=== PATIENT | male | born 1960 | race American Indian/Alaskan Native ===

== ENCOUNTER 2020-01-11 06:10 | Emergency (ER) | payer OTHER ==
--- OUTSIDE RECORDS SUMMARY | 2020-01-11 06:14 | XMS REPORT ---
:1960 Author Organization [facility] t Address [address] [place] [address] Care Team Providers Name Role Phone DR ISAURO Unavailable Unavailable Problems This patient has no known problems. Allergies, Adverse Reactions, Alerts This patient has no known allergies or adverse reactions. Medications This patient has no known medications. Encounters Start End Encounter Admission Attending Care Care Encounter Date/Time Date/Time Type Type Clinicians Facility Department ID 2019-05-02 2019-05-03 Outpatient E RUDI BOX TELE [id number] 125 04:14:00 14:41:00 KELL Results Test Description Test Time Test Comments Text Results Atomic Results Result Comments BLOOD CULTURE 2019-05-07 07:58:00 Test Item Value Reference Range Comments Culture Observations (test code = COB1) NO GROWTH AFTER 5 DAYS BLOOD [id number] 07:58:00 Test Item Value Reference Range Comments Culture Observations (test code = NO GROWTH AFTER 5 DAYS COB1) GLUCOMETER GLUCOSE- LAB USE [id number] 13:13:00 Test Item Value Reference Range Comments GLUCOMETER (test code = GMG) 251 mg/dL 70-100 GLUCOMETER GLUCOSE- LAB USE [id number] 11:48:00 Test Item Value Reference Range Comments GLUCOMETER (test code = GMG) 183 mg/dL 70-100 GREGG AMANUELD METERMeter ID: [id number] or: [id number] ANA HERNANDEZ CBC (INCLUDES AUTOMATED DIFFERENTIAL)2019-05-03 07:40:00 Test Item Value Reference Range Comments WBC (test code = WBC) 5.3 10\S\3/uL 4.5-11.0 RBC (test code = RBC) 4.07 10\S\6/uL 4.20-5.60 HGB (test code = HBG) 11.1 g/dL 14.0-18.0 HCT (test code = HCT) 34.6 % 35.0-46.0 MCV (test code = MCV) 85.0 fL 80.0-94.0 MCH (test code = MCH) 27.3 pg 27.0-31.0 MCHC (test code = MCHC) 32.1 g/dL 32.0-36.0 RDW (test code = RDW) 15.6 % 11.5-14.5 PLT (test code = PLT) 214 10\S\3/uL 130-400 MPV (test code = MPV) 9.0 fL 9.4-12.4 NEUTROP # (test code = NE#) 3.9 10\S\3/uL 2.0-8.0 LYMPH # (test code = LY#) 0.7 10\S\3/uL 1.2-4.0 MONOCYTE # (test code = MO#) 0.5 10\S\3/uL 0.0-1.1 EOSINOPH # (test code = EO#) 0.2 10\S\3/uL 0.0-0.7 BASOPHIL # (test code = BA#) 0.0 10\S\3/uL 0.0-0.3 IG # (test code = IG#) 0.01 10\S\3/uL 0.00-0.06 NRBC # (test code = NRBC#) 0.00 10\S\3/uL 0.00-0.01 NEUTROPH % (test code = NE%) 73.8 % 35.0-73.0 LYMPH % (test code = LY%) 12.9 % 20.0-55.0 MONO % (test code = MO%) 9.3 % 2.5-10.0 EOSINOPH % (test code = EO%) 3.2 % 0.0-5.0 BASOPHIL % (test code = BA%) 0.6 % 0.0-2.0 IG % (test code = IG%) 0.2 % 0.0-0.8 NRBC% (test code = NRBC%) 0.0 % 0.0-0.2 MANDIFF (test code = MDIFF) NO NO RBC MORPH (test code = RBCMOR) NORMAL XR CHEST 1 VIEW [id number] 06:26:20Portable AP chest, 1 viewLocation Code: [id number] HISTORY: [id number]: SyncopeCOMPARISON: 05/02/19COMMENT: The lungs are clear and well inflated. The costophrenic angles are sharp. Thecardiomediastinalsilhouette is enlarged. The bones are intact.IMPRESSION: Mild cardiomegaly without change.GLUCOMETER GLUCOSE- LAB USE [id number] 06:02:00 Test Item Value Reference Range Comments GLUCOMETER (test code = GMG) 118 mg/dL 70-100 Met er ID: [id number]: [id number] AN GLUCOMETER GLUCOSE- LAB USE [id number] 19:57:00 Test Item Value Reference Range Comments GLUCOMETER (test code = GMG) 225 mg/dL 70-100 Met er ID: [id number]: [id number] AN U/S CAROTID COLOR DOPPLER [id number] 19:26:37DICTATION LOCATION: [id number]: Male, 58 years of age. AMS: SyncopeEXAM: BILATERAL CAROTID AND VERTEBRAL ARTERIAL DOPPLERCOMPARISON: Correlation made with CT brain without contrast performed earliertoday.TECHNIQUE: Real-time grayscale 2-D imaging, Doppler spectral analysis, andDoppler color flow imaging were performed of the right and left carotid andvertebral arterial systems.FINDINGS: Study technically limited by poor patient cooperation. No significantvisible plaquing. Doppler waveform morphologyand velocities within normallimits bilaterally. RIGHT CAROTID SYSTEM:CCA peak systolic velocity 86 cm/secICA peak systolic velocity 86 cm/secICA to CCA ratio 1.0ECA peak systolic velocity 52 cm/secLEFTCAROTID SYSTEM:CCA peak systolic velocity 87 cm/secICA peak systolic velocity 105 cm/secICA to CCA ratio 1.2ECA peak systolic velocity 51 cm/secNonresistive antegrade flow seen in both vertebrals. IMPRESSION: No hemodynamically significant (less than 50%) carotid stenosis.(NOTE: Validated velocity me asurements with angiographic measurements, velocitycriteria are extrapolated from diameter data as defined by the Society ofRadiologists in Ultrasound Consensus Conference, RADIOLOGY 2003; 220; 340-346.)U/S KIDNEY (RENAL)2019-05-02 19:24:25DICTATION LOCATION: [id number]: Male, 58 years of age. [id number]: Acute renal failure syndromeEXAM: ULTRASOUND OF THE KIDNEYS AND BLADDERCOMPARISON: None relevant.TECHNIQUE: Transabdominal images of thekidneys and urinary bladder with colorDoppler interrogation were performed with the sector transducer .FINDINGS: RIGHT KIDNEY: 12.0 x 5.0 x 5.2 cmNo hydronephrosis, calculus, or cortical mass.Cortex normal in thickness and echogenicity.LEFT KIDNEY: 11.6 x 6.4 x 6.7 cmNo hydronephrosis, calculus, or cortical mass.Cortex normal in thickness and echogenicity.URINARY BLADDER: Contracted with Cardenas catheter in the lumen.IMPRESSION: The kidneys are sonographically normal.GLUCOMETER GLUCOSE- LAB USE [id number] 16:13:00 Test Item Value Reference Range Comments GLUCOMETER (test code = GMG) 106 mg/dL 70-[address] [facility] ANED METERMeter ID: [id number] or: [id number] ANA HERNANDEZ [id number] 12:12:00 Test Item Value Reference Range Comments Hb A1C % (test code = HBA) 7.0 % 4.2-6.3 [id number] 12:08:00 Test Item Value Reference Range Comments CPK (test code = 32A) 241 IU/L 39-308 CLOSTRIDIUM DIFFICILE [id number] 11:08:00 Test Item Value Reference Range Comments Direct Exam (test code = NO CLOSTRIDIUM DIFFICILE TOXIN DE1) A/B DETECTED GLUCOMETER GLUCOSE- LAB USE [id number] 10:48:00 Test Item Value Reference Range Comments GLUCOMETER (test code = GMG) 251 mg/dL 70-100 GLUCOMETER GLUCOSE- LAB USE [id number] 04:58:00 Test Item Value Reference Range Comments GLUCOMETER (test code = GMG) 193 mg/dL 70-100 Met er ID: [id number]: [id number] DANY[address]LL BUSTILLOS COMPREHENSIVE METABOLIC [id number] 02:32:00 Test Item Value Reference Range Comments GLUCOSE (test code = 06D) 242 mg/dL 75-100 SODIUM (test code = 01A) 143 mmol/L 136-145 POTASSIUM (test code = 01B) 3.8 mmol/L 3.6-5.1 CHLORIDE (test code = 04A) 106 mmol/L 98-107 CO2 (test code = 02A) 24 mmol/L 22-32 ANION GAP (test code = ANG) 16.8 mmol/L BUN (test code = 05D) 31 mg/dL 7-18 CREATININE (test code = 03E) 5.1 mg/dL 0.7-1.3 BUN/CREA (test code = BCR) 6 12-20 CALCIUM (test code = 09D) 8.4 mg/dL 8.3-9.5 BILI TOTAL (test code = 11A) 0.4 mg/dL 0.2-1.0 PROTEIN (test code = 07D) 6.9 g/dL 6.4-8.2 ALBUMIN (test code = 08D) 3.7 g/dL 3.5-4.8 GLOBULIN (test code = GLB) 3.2 g/dL 1.5-3.8 ALB/GLOB (test code = AGRR) 1.2 1.0-2.6 ALK PHOS (test code = 35A) 97 IU/L 42-121 AST (test code = 30A) 15 IU/L <=42 ALT (test code = 31A) 20 IU/L <=78 THYROID PANEL/SCREEN (TSH)2019-05-02 02:32:00 Test Item Value Reference Range Comments TSH (test code = A57) 1.690 uIU/mL 0.358-3.740 BRAIN NATRIURETIC [id number] 02:31:00 Test Item Value Reference Range Comments proBNP (test code = PBNP) 133 pg/mL 0-125 LACTIC [id number] 02:25:00 Test Item Value Reference Range Comments LACTIC ACD (test code = LA) 1.8 mmol/L 0.4-2.0 DRUGS OF [id number] 02:24:00 Test Item Value Reference Range Comments DRUG SCRN (test code = HDOA) URINE DRUG SCREEN This is an unconfirmed screening result and should not be used for non-medical purposes CANNABINOD (test code = 88C) Negative NEGATIVE AMPHETAMINE (test code = POSITIVE NEGATIVE 84A) BENZODIAZP (test code = 86A) Negative NEGATIVE BARBITURAT (test code = 85A) Negative NEGATIVE OPIATES (test code = 92B) Negative NEGATIVE COCAINE (test code = 87A) Negative NEGATIVE PHENCYCLID (test code = 66A) Negative NEGATIVE METHADONE (test code = 64A) Negative NEGATIVE DOAH (test code = DOAH.) URINE DRUG SCREEN Cut-off values are as follows: Cannabinoids 50 ng/mL Cocaine 300 ng/mL Amphetamines 1000 ng/mL Phencyclidine 25 ng/mL Benzodiazepines 200 ng.mL Methadone 300 ng/mL Barbiturates 200 ng/mL Opiates 2000 ng/mL CT HEAD W/O [id number] 02:23:44Exam: CT head without contrast.Location: H 12History: [id number]: Altered mental statusTechnique: Unenhanced spiral slices were taken from the base of the skull,through the vertex. One or more of the fol lowing radiation dose reductiontechniques was used: automated exposure control, adjustment of mA and/or KVaccording to patient size, and/or utilization of iterative reconstructiontechnique.Findings:No acute intracranial abnormality is identified. The brain parenchyma and theCSF spaces are unremarkable. No mass, midline shift, hemorrhage, hydrocephalusor edema is seen. The visualized paranasal sinusesare clear. The mastoid aircells are well pneumatized. The bony calvarium is intact.Impression:No acute intracranial abnormality.CARDIAC PROFILE 2019-05-02 02:23:00 Test Item Value Reference Range Comments TROPONIN I (test code = A84) <0.015 ng/mL 0.000-0.045 XR CHEST 1 VIEW [id number] 02:23:00Exam: Chest portable erectLocation: H 12History: [id number]: Altered mental statusComparison: NoneFindings:The lungs are clear. No infiltrate or effusion is seen. The pulmonaryvasculature is normal. Theheart size is normal. The mediastinal silhouette isunremarkable. The bony thorax is intact.Impression:No acute disease.ALCOHOL BLOOD (ETOH) 2019-05-02 02:21:00 Test Item Value Reference Range Comments ETOH (test code = HALC) ETHANOL The result is to be used only for medical purposes ALCOHOL (test code = 56A) <10 mg/dL <=10 [id number] 02:19:00 Test Item Value Reference Range Comments MAGNESIUM (test code = 48A) 1.8 mg/dL 1.8-2.4 AMMONIA [id number] 02:17:00 Test Item Value Reference Range Comments AMMONIA (test code = 54A) 16 umol/L 11-32 AMYLASE AND [id number] 02:16:00 Test Item Value Reference Range Comments AMYLASE (test code = 10A) 40 U/L 28-100 LIPASE (test code = 60A) 150 IU/L 73-393 URINALYSIS WITH [id number] 02:14:00 Test Item Value Reference Range Comments COLOR (test code = COLU) DK YELLOW YELLOW CLARITY (test code = CLA) CLOUDY CLEAR GLUCOSE UR (test code = UA GLUCOSE) NEGATIVE NEGATIVE BILI UR (test code = BILE) 1+ NEGATIVE KETONES UR (test code = MECHELLE) TRACE NEGATIVE SP GRAVITY (test code = SPGR) 1.027 1.005-1.030 PH UR (test code = PH) 5.0 4.5-8.0 PROTEIN UR (test code = PU) 2+ NEGATIVE UROBIL UR (test code = UROQ) 0.2 EU/dL 0.2-1.0 NITRITE UR (test code = NITRITE) NEGATIVE NEGATIVE BLOOD UR (test code = UA BLOOD) NEGATIVE NEGATIVE LEUK ES UR (test code = LEUK) NEGATIVE NEGATIVE WBC UR (test code = UWBC) 1 /HPF 0-3 RBC UR (test code = URBC) 1 /HPF 0-2 EPITH UR (test code = UEPC) FEW /LPF NONE BACTERIA UR (test code = UBACT) FEW /HPF NONE CAST UR (test code = CAST) HYALINE FEW /LPF NONE CRYSTAL UR (test code = CRYU) / LPF NONE MUCUS UR (test code = MUC) / HPF NONE AMORPH UR (test code = DEANNA) / HPF NONE TRICH UR (test code = UTRICH) /HPF NONE YEAST UR (test code = UY) /HPF NONE SPERM UR (test code = USPERM) /HPF NONE PRO TIME AND [id number] 02:14:00 Test Item Value Reference Range Comments PT (test code = TT) 11.7 s 9.8-13.6 INR (test code = INR) 1.0 INRH (test code = INRH) SUGGESTED THERAPEUTIC RANGE FOR INR: 2.5 - 3.5 For Patients with Prosthetic Valves or Patients with recurrent Thromboembolic Events 2.0 - 3.0 For Most Other Applications PTT (test code = PTT) 23.7 s 20.2-38.0 PTTH (test code = PTTH) To monitor the effectiveness of heparin, we offer the Anti-Xa (Heparin Assay). It can be used for either unfractionated or LMW Heparin. Order Code is ANTI-XA CBC (INCLUDES AUTOMATED DIFFERENTIAL)2019-05-02 02:07:00 Test Item Value Reference Range Comments WBC (test code = WBC) 7.0 10\S\3/uL 4.5-11.0 RBC (test code = RBC) 4.21 10\S\6/uL 4.20-5.60 HGB (test code = HBG) 11.4 g/dL 14.0-18.0 HCT (test code = HCT) 36.1 % 35.0-46.0 MCV (test code = MCV) 85.7 fL 80.0-94.0 MCH (test code = MCH) 27.1 pg 27.0-31.0 MCHC (test code = MCHC) 31.6 g/dL 32.0-36.0 RDW (test code = RDW) 16.0 % 11.5-14.5 PLT (test code = PLT) 259 10\S\3/uL 130-400 MPV (test code = MPV) 8.9 fL 9.4-12.4 NEUTROP # (test code = NE#) 5.2 10\S\3/uL 2.0-8.0 LYMPH # (test code = LY#) 1.0 10\S\3/uL 1.2-4.0 MONOCYTE # (test code = MO#) 0.7 10\S\3/uL 0.0-1.1 EOSINOPH # (test code = EO#) 0.1 10\S\3/uL 0.0-0.7 BASOPHIL # (test code = BA#) 0.0 10\S\3/uL 0.0-0.3 IG # (test code = IG#) 0.02 10\S\3/uL 0.00-0.06 NRBC # (test code = NRBC#) 0.00 10\S\3/uL 0.00-0.01 NEUTROPH % (test code = NE%) 74.7 % 35.0-73.0 LYMPH % (test code = LY%) 14.2 % 20.0-55.0 MONO % (test code = MO%) 9.3 % 2.5-10.0 EOSINOPH % (test code = EO%) 1.1 % 0.0-5.0 BASOPHIL % (test code = BA%) 0.4 % 0.0-2.0 IG % (test code = IG%) 0.3 % 0.0-0.8 NRBC% (test code = NRBC%) 0.0 % 0.0-0.2 MANDIFF (test code = MDIFF) NO NO RBC MORPH (test code = RBCMOR) NORMAL Arterial Blood [id number] 02:02:00 Test Item Value Reference Range Comments pH (test code = PHRT) 7.344 7.350-7.450 pCO2 (test code = PCO2RT) 32.1 mmHg 35.0-45.0 pO2 (test code = PO2RT) 130.0 mmHg 80.0-110.0 HCO3? (test code = HCO3) 17.0 mmol/L 22.0-26.0 AMA (test code = AMA) -7.3 mmol/L -3.0-3.0 tHb (test code = THBRT) 10.5 g/dL 14.0-18.0 sO2 (test code = SO2RT) 98.2 % 92.0-100.0 FO2Hb (test code = SZ3JYKU) 95.0 % 94.0-100.0 FCOHb (test code = FCOHBRT) 1.9 % 0.0-3.0 FMetHb (test code = FMETHBRT) 1.3 % 0.2-0.6 ABGTEMP (test code = ABGTEMP) * Temp Corrected Values* ABGTEMP (test code = ABGTEMP.) 37.0 ?C pH (T) (test code = PHTEMP) 7.344 7.350-7.450 pCO2 (T) (test code = ATX0ICRF) 32.1 mmHg 35.0-45.0 pO2 (T) (test code = CO1HQMF) 130.0 mmHg 80.0-110.0 Device (test code = DEVICE) NASAL CANNULA FI02 (test code = FI02) 28.0 % Liter_flow (test code = LF) 2.00 VENPAR (test code = VENPAR) * Ventilator Parameters * SIMV (test code = SIMV) A/C (test code = A/C) CPAP (test code = CPAP) PEEP (test code = PEEP) PS (test code = PS) PIP (test code = PIP) I_Time (test code = ITIME) Vt (test code = VT) BIPAP INSP (test code = BIPAPINP) BIPAP EXP (test code = BIPAPEXP) Farhan test (test code = ATEST) Positive SAMPLE SITE (test code = SSITE) Right Radial Artery COMMENT (test code = CO)
[2020-01-11] MEDS ORDERED: NA CHLORIDE 0.9% 500 ML ONE (06:34)
[2020-01-11] MEDS ORDERED: TETANUS & DIPHTHERIA TOX,ADULT 0.5 ML VIAL ONE (06:34)
[2020-01-11 06:39] LABS: Absolute Lymphocytes (CBC) 1.2 K/uL (0.7-4.9); RBC Red Blood Cell Count 4.35 M/uL (4.33-5.43)
[2020-01-11 06:52] LABS: ALT/SGPT 17 U/L (12-78); AST/SGOT 17 U/L (15-37); Albumin 3.6 g/dL (3.4-5.0); Alkaline Phosphatase 98 U/L (45-117); BUN Blood Urea Nitrogen 38 mg/dL (7-18); Bicarbonate 21 mmol/L (21-32); Bilirubin Direct 0.1 mg/dL (0-0.2); Bilirubin Total 0.4 mg/dL (0.2-1.0); Glucose Level 156 mg/dL (74-106); Magnesium 1.5 mg/dL (1.8-2.4); NT PRO-BNP 61 pg/mL (<125); Potassium 4.1 mmol/L (3.5-5.1); Protein, Total 7.2 g/dL (6.4-8.2); Sodium Level 139 mmol/L (136-145); Troponin (Emerg Dept Use Only) < 0.02 ng/mL (0.0-0.045)
[2020-01-11 07:05] LABS: Protime INR 0.95
--- NOTE | 2020-01-11 07:36 | ER ---
Nurse's Notes [facility] Name: Derek Matias Age: 59 yrs Sex: Male : 1960 Arrival Date: 01/11/2020 Time: 06:13 Bed 20 Private MD: Diagnosis: Abrasion of ankle;Renal insufficiency Presentation: 01/10 06:17 Chief complaint: Patient states: he thinks he may have been bitten by a snake to left bb ankle approx 30 minutes ago, pt did not see a snake states he was stepping over a fence that was tied off when he felt a pop and his ankle started bleeding. Coronavirus screen: Proceed with normal triage. Ebola Screen: No symptoms or risks identified at this time. Initial Sepsis Screen: Does the patient meet any 2 criteria? No. Patient's initial sepsis screen is negative. Does the patient have a suspected source of infection? No. Patient's initial sepsis screen is negative. Risk Assessment: Do you want to hurt yourself or someone else? Patient reports no desire to harm self or others. Onset of symptoms was January 11, 2020. 06:17 Method Of Arrival: Ambulatory 06:17 Acuity: CARLOS 3 bb Historical: - Allergies: 06:21 No Known Allergies; bb - Home Meds: 06:21 Metformin Oral [Active]; Lisinopril Oral [Active]; pantoprazole oral oral [Active]; pt bb does not remember the others [Active]; - PMHx: 06:21 Diabetes - NIDDM; Hypertension; GERD; bb - PSHx: 06:21 Appendectomy; bb - Immunization history:: Adult Immunizations unknown, Last tetanus immunization: unknown. - Social history:: Smoking status: Patient reports the use of cigarette tobacco products, smokes one-half pack cigarettes per day, Patient/guardian denies using alcohol. Screenin:23 Abuse screen: Denies threats or abuse. Denies injuries from another. Nutritional rv screening: No deficits noted. Tuberculosis screening: No symptoms or risk factors identified. Fall Risk None identified. Assessment: 06:20 General: Appears comfortable, Behavior is calm, cooperative. Pain: Complains of pain in rv left lateral ankle. Neuro: Level of Consciousness is awake, alert, obeys commands, Oriented to person, place, time, situation. Cardiovascular: Patient's skin is warm and dry. Rhythm is regular. Respiratory: Airway is patent Respiratory effort is even, unlabored. Derm: Skin is intact, Wound noted left lateral ankle Wound is abrasion. Musculoskeletal: Swelling present in left lateral ankle. Injury Description: possible snake bite. 06:30 Reassessment: left leg elevated. rv 07:19 Reassessment: pt states he wants to leave, provider notified. em Vital Signs: 06:17 BP 108 / 72; Pulse 90; Resp 16 S; Temp 98.3(O); Pulse Ox 94% on R/A; Weight 120.2 kg bb (R); Height 5 ft. 7 in. (170.18 cm) (R); Pain 2/10; 07:20 BP 109 / 67; Pulse 81; Resp 18; Pulse Ox 99% on R/A; em 06:17 Body Mass Index 41.50 (120.20 kg, 170.18 cm) bb ED Course: 06:13 Patient arrived in ED. ds1 06:16 Mali Broussard FNP-C is PHCP. snw 06:16 Harlan Gibson MD is Attending Physician. snw 06:19 Jose Stephens, NIR is Primary Nurse. rv 06:20 Triage completed. bb 06:21 Arm band placed on Patient placed in an exam room, on a stretcher, on pulse oximetry. bb 06:22 Initial lab(s) drawn, by me, sent to lab. Inserted saline lock: 18 gauge in right rv antecubital area, using aseptic technique. Blood collected. Wound care: to abrasion, located on left lateral ankle was cleaned with with water, Patient tolerated well. 06:23 Patient has correct armband on for positive identification. Bed in low position. Call light in reach. Side rails up X 1. surveillance system monitor on. Pulse ox on. NIBP on. 06:24 Jose Stephens, NIR is Primary Nurse. rv 07:11 Ronaldo Currie, NIR is Primary Nurse. em 07:44 No provider procedures requiring assistance completed. IV discontinued, intact, em bleeding controlled, No redness/swelling at site. Pressure dressing applied. Administered Medications: 06:24 Drug: Tetanus-Diphtheria Toxoid Adult 0.5 ml {Cigar Packer And Picker: [employer] software. Exp: rv 11/06/2021. Lot #: [id number]. } Route: IM; Site: right deltoid; 07:26 Follow up: Response: No adverse reaction em 06:24 Drug: NS 0.9% 500 ml Route: IV; Rate: bolus; Site: right antecubital; rv 07:42 Follow up: IV Status: Completed infusion; IV Intake: 500ml em Intake: 07:42 IV: 500ml; Total: 500ml. em Outcome: 07:34 Discharge ordered by MD. perez 07:44 Discharged to home ambulatory. em 07:44 Condition: good 07:44 Discharge instructions given to patient, Instructed on discharge instructions, follow up and referral plans. medication usage, wound care, Demonstrated understanding of instructions, follow-up care, medications, wound care, Prescriptions given X 1. 07:48 Patient left the ED. em Signatures: Mali Broussard, WATER ENGINEER-C WATER ENGINEER-Csnw Ronaldo Currie, RN RN Mallory Elizondo ds1 Anyi Paula RN RN bb Jose Stephens RN RN rv
--- NOTE | 2020-01-11 07:36 | EDPHYS ---
Physician Documentation [facility] Name: Derek Matias Age: 59 yrs Sex: Male : 1960 Arrival Date: 01/11/2020 Time: 06:13 Bed 20 Private MD: ED Physician Harlan Gibson HPI: 01/10 07:32 This 59 yrs old Other Male presents to ER via Ambulatory with complaints of possible snw snake bite. 07:32 The patient presents with pain, that is acute. The complaints affect the left ankle. snw Onset: The symptoms/episode began/occurred suddenly, just prior to arrival. Context: The problem was sustained outdoors, resulted from stepping over a wire and felt a pop to left ankle, could not make area stop bleeding, The patient can fully bear weight on the affected extremity. the patient is able to ambulate. Associated signs and symptoms: The patient has no apparent associated signs or symptoms. Severity of symptoms: At their worst the symptoms were moderate. The patient has not experienced similar symptoms in the past. It is unknown whether or not the patient has recently seen a physician. Historical: - Allergies: 06:21 No Known Allergies; bb - Home Meds: 06:21 Metformin Oral [Active]; Lisinopril Oral [Active]; pantoprazole oral oral [Active]; pt bb does not remember the others [Active]; - PMHx: 06:21 Diabetes - NIDDM; Hypertension; GERD; bb - PSHx: 06:21 Appendectomy; bb - Immunization history:: Adult Immunizations unknown, Last tetanus immunization: unknown. - Social history:: Smoking status: Patient reports the use of cigarette tobacco products, smokes one-half pack cigarettes per day, Patient/guardian denies using alcohol. ROS: 07:26 Constitutional: Negative for fever, chills, and weight loss, Eyes: Negative for injury, snw pain, redness, and discharge, ENT: Negative for injury, pain, and discharge, Neck: Negative for injury, pain, and swelling, Cardiovascular: Negative for chest pain, palpitations, and edema, Respiratory: Negative for shortness of breath, cough, wheezing, and pleuritic chest pain, Abdomen/GI: Negative for abdominal pain, nausea, vomiting, diarrhea, and constipation, Back: Negative for injury and pain, : Negative for injury, bleeding, discharge, and swelling, MS/Extremity: Negative for injury and deformity, Skin: Negative for injury, rash, and discoloration, pt states he felt a pop on his left ankle and then could not get the bleeding to stop. Concerned for snake bite Neuro: Negative for headache, weakness, numbness, tingling, and seizure, Psych: Negative for depression, anxiety, suicide ideation, homicidal ideation, and hallucinations. Exam: 07:27 Constitutional: This is a well developed, well nourished patient who is awake, alert, snw and in no acute distress. Head/Face: Normocephalic, atraumatic. Eyes: Pupils equal round and reactive to light, extra-ocular motions intact. Lids and lashes normal. Conjunctiva and sclera are non-icteric and not injected. Cornea within normal limits. Periorbital areas with no swelling, redness, or edema. ENT: Nares patent. No nasal discharge, no septal abnormalities noted. Tympanic membranes are normal and external auditory canals are clear. Oropharynx with no redness, swelling, or masses, exudates, or evidence of obstruction, uvula midline. Mucous membranes moist. Neck: Trachea midline, no thyromegaly or masses palpated, and no cervical lymphadenopathy. Supple, full range of motion without nuchal rigidity, or vertebral point tenderness. No Meningismus. Chest/axilla: Normal chest wall appearance and motion. Nontender with no deformity. No lesions are appreciated. Cardiovascular: Regular rate and rhythm with a normal S1 and S2. No gallops, murmurs, or rubs. Normal PMI, no JVD. No pulse deficits. Respiratory: Lungs have equal breath sounds bilaterally, clear to auscultation and percussion. No rales, rhonchi or wheezes noted. No increased work of breathing, no retractions or nasal flaring. Abdomen/GI: Soft, non-tender, with normal bowel sounds. No distension or tympany. No guarding or rebound. No evidence of tenderness throughout. Back: No spinal tenderness. No costovertebral tenderness. Full range of motion. Neuro: Awake and alert, GCS 15, oriented to person, place, time, and situation. Cranial nerves II-XII grossly intact. Motor strength 5/5 in all extremities. Sensory grossly intact. Cerebellar exam normal. Normal gait. Psych: Awake, alert, with orientation to person, place and time. Behavior, mood, and affect are within normal limits. 07:27 Musculoskeletal/extremity: Extremities: grossly normal except: left lateral ankle appears a little swollen, no puncture wounds, dried blood to area, no active bleeding. 07:27 Skin: Appearance: Color: pale, Temperature: normal temperature, Moisture: normal moisture, injury, abrasion(s), small abrasion noted, of the left lateral ankle. Vital Signs: 06:17 BP 108 / 72; Pulse 90; Resp 16 S; Temp 98.3(O); Pulse Ox 94% on R/A; Weight 120.2 kg bb (R); Height 5 ft. 7 in. (170.18 cm) (R); Pain 2/10; 07:20 BP 109 / 67; Pulse 81; Resp 18; Pulse Ox 99% on R/A; em 06:17 Body Mass Index 41.50 (120.20 kg, 170.18 cm) bb MDM: 06:26 Patient medically screened. snw 07:25 Data reviewed: vital signs, nurses notes. Data interpreted: Pulse oximetry: on room air snw is 94 %. Interpretation: acceptable. Counseling: I had a detailed discussion with the patient and/or guardian regarding: the historical points, exam findings, and any diagnostic results supporting the discharge/admit diagnosis, lab results. Response to treatment: pt requests discharge from ED, declines x-rays. 01/10 06:23 Order name: Basic Metabolic Panel snw 01/10 06:23 Order name: CBC with Diff; Complete Time: 06:55 snw 01/10 06:23 Order name: LFT's; Complete Time: 06:55 snw 01/10 06:23 Order name: Magnesium; Complete Time: 06:55 snw 01/10 06:23 Order name: NT PRO-BNP; Complete Time: 06:55 snw 01/10 06:23 Order name: PT-INR; Complete Time: 07:20 snw 01/10 06:23 Order name: Troponin (emerg Dept Use Only); Complete Time: 06:55 snw 01/10 06:23 Order name: Fibrinogen; Complete Time: 07:20 snw 01/10 06:23 Order name: Ptt, Activated; Complete Time: 07:20 snw 01/10 06:24 Order name: Basic Metabolic Panel; Complete Time: 06:55 EDMS 01/10 06:23 Order name: EKG; Complete Time: 06:24 snw 01/10 06:23 Order name: Cardiac monitoring; Complete Time: 06:25 snw 01/10 06:23 Order name: EKG - Nurse/Tech; Complete Time: 06:25 snw 01/10 06:23 Order name: IV Saline Lock; Complete Time: 06:25 snw 01/10 06:23 Order name: Labs collected and sent; Complete Time: 06:25 snw 01/10 06:23 Order name: O2 Per Protocol; Complete Time: 06:25 snw 01/10 06:23 Order name: O2 Sat Monitoring; Complete Time: 06:25 snw Administered Medications: 06:24 Drug: Tetanus-Diphtheria Toxoid Adult 0.5 ml {Quotation Checker: [employer]. Exp: rv 11/06/2021. Lot #: [id number]. } Route: IM; Site: right deltoid; 07:26 Follow up: Response: No adverse reaction em 06:24 Drug: NS 0.9% 500 ml Route: IV; Rate: bolus; Site: right antecubital; rv 07:42 Follow up: IV Status: Completed infusion; IV Intake: 500ml em Disposition: 01/11/20 07:34 Discharged to Home. Impression: Abrasion of ankle, Renal insufficiency. - Condition is Stable. - Discharge Instructions: Abrasion, Hypertension, VIS, Diphtheria, Tetanus, and Pertussis (DTaP) - CDC, Chronic Kidney Disease, Adult, Preventing Chronic Kidney Disease. - Prescriptions for Bactroban 2 % Topical Ointment - Apply to affected area 1 application by TOPICAL route every 12 hours; 15 gram. - Medication Reconciliation Form, Thank You Letter, Antibiotic Education, Prescription Opioid Use form. - Follow up: Emergency Department; When: As needed; Reason: Worsening of condition. Follow up: Private Physician; When: 2 - 3 days; Reason: Recheck today's complaints, Continuance of care, Re-evaluation by your physician. Addendum: 01/12/2020 10:07 Co-signature as Attending Physician, Harlan Gibson MD I agree with the assessment and t w4 plan of care. Signatures: Dispatcher [employer] Mali Powell, CLAUDIO-Lincoln CELLULOSE INSULATION HELPER-Mylaw Ronaldo Currie, RN RN Anyi Alva RN RN Harlan Jones MD MD tw4 Jose Stephens RN RN rv Corrections: (The following items were deleted from the chart) 01/10 07:48 07:34 01/11/2020 07:34 Discharged to Home. Impression: Abrasion of ankle; Renal em insufficiency. Condition is Stable. Forms are Medication Reconciliation Form, Thank You Letter, Antibiotic Education, Prescription Opioid Use. Follow up: Emergency Department; When: As needed; Reason: Worsening of condition. Follow up: Private Physician; When: 2 - 3 days; Reason: Recheck today's complaints, Continuance of care, Re-evaluation by your physician. snw
[2020-01-11 07:57] VITALS: TEMP 98.3
[2020-01-11 07:58] VITALS: BP 109/67; O2SAT 99
--- NOTE | 2020-01-11 16:24 | EKG ---
Test Date: 2020-01-11 Test Time: 06:20:22 Insurance Office Supervisor: MEASUREMENT RESULTS: Intervals: Rate: 83 IN: 166 QRSD: 90 QT: 386 QTc: 453 [place]: P: 49 IN: 166 QRS: -32 T: 47 INTERPRETIVE STATEMENTS: Normal sinus rhythm Left axis deviation Possible Anterior infarct, age undetermined Abnormal ECG Compared to ECG 04/09/2013 13:07:07 Left-axis deviation now present Myocardial infarct finding now present Electronically Signed On 01-11-20 16:22:12 CDT by Michel Medina
== END 2020-01-11 07:48 | disposition home or self-care (01) ==
LOC: ER 06:10
DX: S90.512A Abrasion, left ankle, initial encounter (principal); X58.XXXA Exposure to other specified factors, initial encounter; Y93.01 Activity, walking, marching and hiking; Y92.9 Unspecified place or not applicable; N28.9 Disorder of kidney and ureter, unspecified; I10 Essential (primary) hypertension; E11.9 Type 2 diabetes mellitus without complications; Z23 Encounter for immunization; F17.210 Nicotine dependence, cigarettes, uncomplicated
CPT/HCPCS: 93005; 85025; 80048; 36415; 85384; 83735; 85610; 80076; 85730; 84484; 83880; 90714; J7040; 90471; 96360; 99284

== ENCOUNTER 2020-07-26 10:53 | Emergency (ER) | payer OTHER ==
--- OUTSIDE RECORDS SUMMARY | 2020-07-26 11:06 | XMS REPORT | Continuity of Care Document ---
:1960 Author Organization [facility] t Address [address] [place] [address] [address] [place] [address] Care Team Providers Name Role Phone DR ISAURO Attending Clinician Unavailable DR ISAURO Admitting Clinician Unavailable Problems This patient has no known problems. Allergies, Adverse Reactions, Alerts This patient has no known allergies or adverse reactions. Medications This patient has no known medications. Procedures This patient has no known procedures. Encounters Start End Encounter Admission Attending Care Care Encounter Source Date/Time Date/Time Type Type Clinicians Facility Department ID 2019-05-02 2019-05-03 Outpatient E [facility] [id number] [address] [facility] 04:14:00 14:41:00 [facility] Results Test Description Test Time Test Comments Results Result Comments Source BLOOD CULTURE 2019-05-07 07:58:00 Test Item Value Reference Range Interpretation Comme nts Culture Observations (test code = COB1) NO GROWTH AFTER 5 DAYS BLOOD [id number] 07:58:00 Test Item Value Reference Range Interpretation Comments Culture Observations (test NO GROWTH AFTER 5 code = COB1) DAYS GLUCOMETER GLUCOSE- LAB USE [id number] 13:13:00 Test Item Value Reference Range Interpretation Comments GLUCOMETER (test code = GMG) 251 mg/dL 70-100 H GLUCOMETER GLUCOSE- LAB USE [id number] 11:48:00 Test Item Value Reference Range Interpretation Comments GLUCOMETER (test code 183 mg/dL 70-100 H CLEANE D METERMeter ID: = GMG) [id number] tor: [id number] ANA DA S ILVA CBC (INCLUDES AUTOMATED DIFFERENTIAL)2019-05-03 07:40:00 Test Item Value Reference Range Interpretation Comments WBC (test code = WBC) 5.3 10\S\3/uL 4.5-11.0 RBC (test code = RBC) 4.07 10\S\6/uL 4.20-5.60 L HGB (test code = HBG) 11.1 g/dL 14.0-18.0 L HCT (test code = HCT) 34.6 % 35.0-46.0 L MCV (test code = MCV) 85.0 fL 80.0-94.0 MCH (test code = MCH) 27.3 pg 27.0-31.0 MCHC (test code = MCHC) 32.1 g/dL 32.0-36.0 RDW (test code = RDW) 15.6 % 11.5-14.5 H PLT (test code = PLT) 214 10\S\3/uL 130-400 MPV (test code = MPV) 9.0 fL 9.4-12.4 L NEUTROP # (test code = NE#) 3.9 10\S\3/uL 2.0-8.0 LYMPH # (test code = LY#) 0.7 10\S\3/uL 1.2-4.0 L MONOCYTE # (test code = MO#) 0.5 10\S\3/uL 0.0-1.1 EOSINOPH # (test code = EO#) 0.2 10\S\3/uL 0.0-0.7 BASOPHIL # (test code = BA#) 0.0 10\S\3/uL 0.0-0.3 IG # (test code = IG#) 0.01 10\S\3/uL 0.00-0.06 NRBC # (test code = NRBC#) 0.00 10\S\3/uL 0.00-0.01 NEUTROPH % (test code = NE%) 73.8 % 35.0-73.0 H LYMPH % (test code = LY%) 12.9 % 20.0-55.0 L MONO % (test code = MO%) 9.3 % 2.5-10.0 EOSINOPH % (test code = EO%) 3.2 % 0.0-5.0 BASOPHIL % (test code = BA%) 0.6 % 0.0-2.0 IG % (test code = IG%) 0.2 % 0.0-0.8 NRBC% (test code = NRBC%) 0.0 % 0.0-0.2 MANDIFF (test code = MDIFF) NO NO RBC MORPH (test code = RBCMOR) NORMAL XR CHEST 1 VIEW [id number] 06:26:20Portable AP chest, 1 viewLocation Code: [id number] HISTORY: [id number]: SyncopeCOMPARISON: 05/02/19COMMENT: The lungs are clear and well inflated. The costophrenic angles are sharp. Thecardiomediastinalsilhouette is enlarged. The bones are intact.IMPRESSION: Mild cardiomegaly without change.GLUCOMETER GLUCOSE- LAB USE [id number] 06:02:00 Test Item Value Reference Range Interpretation Comments GLUCOMETER (test code = 118 mg/dL 70-100 H Mete r ID: GMG) [id number] tor: [address] GLUCOMETER GLUCOSE- LAB USE [id number] 19:57:00 Test Item Value Reference Range Interpretation Comments GLUCOMETER (test code = 225 mg/dL 70-100 H Mete r ID: GMG) [id number] tor: [address] U/S CAROTID COLOR DOPPLER [id number] 19:26:37DICTATION LOCATION: [id number]: Male, 58 years of age. AMS: SyncopeEXAM: [...] 2003; 220; 340-346.)U/S KIDNEY (RENAL)2019-05-02 19:24:25DICTATION LOCATION: [id number]: Male, 58 years of age. [id number]: Acute renal failure syndromeEXAM: ULTRASOUND OF THE [...] kidneys are sonographically normal.GLUCOMETER GLUCOSE- LAB USE [id number] 16:13:00 Test Item Value Reference Range Interpretation Comments GLUCOMETER (test code 106 mg/dL 70-100 H CLEANE D METERMeter ID: = GMG) [id number] tor: 9165 ANA DA Roberto ILVA [id number] 12:12:00 Test Item Value Reference Range Interpretation Comments Hb A1C % (test code = HBA) 7.0 % 4.2-6.3 H [id number] 12:08:00 Test Item Value Reference Range Interpretation Comments CPK (test code = 32A) 241 IU/L 39-308 CLOSTRIDIUM DIFFICILE [id number] 11:08:00 Test Item Value Reference Range Interpretation Comments Direct Exam (test NO CLOSTRIDIUM DIFFICILE code = DE1) TOXIN A/B DETECTED GLUCOMETER GLUCOSE- LAB USE [id number] 10:48:00 Test Item Value Reference Range Interpretation Comments GLUCOMETER (test code = GMG) 251 mg/dL 70-100 H GLUCOMETER GLUCOSE- LAB USE [id number] 04:58:00 Test Item Value Reference Range Interpretation Comments GLUCOMETER (test code = 193 mg/dL 70-100 H Mete r ID: GMG) [id number] tor: [address] COMPREHENSIVE METABOLIC [id number] 02:32:00 Test Item Value Reference Range Interpretation Comments GLUCOSE (test code = 06D) 242 mg/dL 75-100 H SODIUM (test code = 01A) 143 mmol/L 136-145 POTASSIUM (test code = 01B) 3.8 mmol/L 3.6-5.1 CHLORIDE (test code = 04A) 106 mmol/L 98-107 CO2 (test code = 02A) 24 mmol/L 22-32 ANION GAP (test code = ANG) 16.8 mmol/L BUN (test code = 05D) 31 mg/dL 7-18 H CREATININE (test code = 03E) 5.1 mg/dL 0.7-1.3 H BUN/CREA (test code = BCR) 6 12-20 L CALCIUM (test code = 09D) 8.4 mg/dL [...] (TSH)2019-05-02 02:32:00 Test Item Value Reference Range Interpretation Comments TSH (test code = A57) 1.690 uIU/mL 0.358-3.740 BRAIN NATRIURETIC [id number] 02:31:00 Test Item Value Reference Range Interpretation Comments proBNP (test code = PBNP) 133 pg/mL 0-125 H LACTIC [id number] 02:25:00 Test Item Value Reference Range Interpretation Comments LACTIC ACD (test code = LA) 1.8 mmol/L 0.4-2.0 DRUGS OF [id number] 02:24:00 Test Item Value Reference Range Interpretation Comments DRUG SCRN (test code URINE DRUG SCREEN = HDOA) This is an unconfirmed screening result and should not be used for non-medical purposes CANNABINOD (test code Negative NEGATIVE = 88C) AMPHETAMINE (test POSITIVE NEGATIVE A code = 84A) BENZODIAZP (test code Negative NEGATIVE = 86A) BARBITURAT (test code Negative NEGATIVE = 85A) OPIATES (test code = Negative NEGATIVE 92B) COCAINE (test code = Negative NEGATIVE 87A) PHENCYCLID (test code Negative NEGATIVE = 66A) METHADONE (test code Negative NEGATIVE = 64A) DOAH (test code = DOAH.) *URINE DRUG SCREEN Cut-off values are as follows: Cannabinoids 50 ng/mL Cocaine 300 ng/mL Amphetamines 1000 ng/mL Phencyclidine 25 ng/mL Benzodiazepines 200 ng.mL Methadone 300 ng/mL Barbiturates 200 ng/mL Opiates 2000 ng/mL CT HEAD W/O [id number] 02:23:44Exam: CT head without contrast.Location: H 12History: [id number]: Altered mental statusTechnique: Unenhanced spiral slices were [...] 2019-05-02 02:23:00 Test Item Value Reference Range Interpretation Comments TROPONIN I (test code = A84) <0.015 ng/mL 0.000-0.045 XR CHEST 1 VIEW [id number] 02:23:00Exam: Chest portable erectLocation: H 12History: [id number]: Altered mental statusComparison: NoneFindings:The lungs are clear. No infiltrate or effusion is seen. The pulmonaryvasculature is normal. Theheart size is normal. The mediastinal silhouette isunremarkable. The bony thorax is intact.Impression:No acute disease.ALCOHOL BLOOD (ETOH) 2019-05-02 02:21:00 Test Item Value Reference Range Interpretation Comments ETOH (test code = HALC) ETHANOL The result is to be used only for medical purposes ALCOHOL (test code = <10 mg/dL <=10 56A) [id number] 02:19:00 Test Item Value Reference Range Interpretation Comments MAGNESIUM (test code = 48A) 1.8 mg/dL 1.8-2.4 AMMONIA [id number] 02:17:00 Test Item Value Reference Range Interpretation Comments AMMONIA (test code = 54A) 16 umol/L 11-32 AMYLASE AND [id number] 02:16:00 Test Item Value Reference Range Interpretation Comments AMYLASE (test code = 10A) 40 U/L 28-100 LIPASE (test code = 60A) 150 IU/L 73-393 URINALYSIS WITH [id number] 02:14:00 Test Item Value Reference Range Interpretation Comments COLOR (test code = COLU) DK YELLOW YELLOW A CLARITY (test code = CLA) CLOUDY CLEAR A GLUCOSE UR (test code = UA NEGATIVE NEGATIVE GLUCOSE) BILI UR (test code = BILE) 1+ NEGATIVE A KETONES UR (test code = MECHELLE) TRACE NEGATIVE A SP GRAVITY (test code = 1.027 1.005-1.030 SPGR) PH UR (test code = PH) 5.0 4.5-8.0 PROTEIN UR (test code = PU) 2+ NEGATIVE A UROBIL UR (test code = UROQ) 0.2 EU/dL 0.2-1.0 NITRITE UR (test code = NEGATIVE NEGATIVE NITRITE) BLOOD UR (test code = UA NEGATIVE NEGATIVE BLOOD) LEUK ES UR (test code = NEGATIVE NEGATIVE LEUK) WBC UR (test code = UWBC) 1 /HPF 0-3 RBC UR (test code = URBC) 1 /HPF 0-2 EPITH UR (test code = UEPC) FEW /LPF NONE A BACTERIA UR (test code = FEW /HPF NONE A UBACT) CAST UR (test code = CAST) HYALINE FEW /LPF NONE A CRYSTAL UR (test code = / LPF NONE CRYU) MUCUS UR (test code = MUC) / HPF NONE AMORPH UR (test code = DEANNA) / HPF NONE TRICH UR (test code = /HPF NONE UTRICH) YEAST UR (test code = UY) /HPF NONE SPERM UR (test code = /HPF NONE USPERM) PRO TIME AND [id number] 02:14:00 Test Item Value Reference Range Interpretation Comments PT (test code = 11.7 s 9.8-13.6 TT) INR (test code = 1.0 INR) INRH (test code = SUGGESTED INRH) THERAPEUTIC RANGE FOR INR: 2.5 - 3.5 For Patients with Prosthetic Valves or Patients with recurrent Thromboembolic Events 2.0 - 3.0 For Most Other Applications PTT (test code = 23.7 s 20.2-38.0 PTT) PTTH (test code = To monitor the PTTH) effectiveness of heparin, we offer the Anti-Xa (Heparin Assay). It can be used for either unfractionated or LMW Heparin. Order Code is ANTI-XA CBC (INCLUDES AUTOMATED DIFFERENTIAL)2019-05-02 02:07:00 Test Item Value Reference Range Interpretation Comments WBC (test code = WBC) 7.0 10\S\3/uL 4.5-11.0 RBC (test code = RBC) 4.21 10\S\6/uL 4.20-5.60 HGB (test code = HBG) 11.4 g/dL 14.0-18.0 L HCT (test code = HCT) 36.1 % 35.0-46.0 MCV (test code = MCV) 85.7 fL 80.0-94.0 MCH (test code = MCH) 27.1 pg 27.0-31.0 MCHC (test code = MCHC) 31.6 g/dL 32.0-36.0 L RDW (test code = RDW) 16.0 % 11.5-14.5 H PLT (test code = PLT) 259 10\S\3/uL 130-400 MPV (test code = MPV) 8.9 fL 9.4-12.4 L NEUTROP # (test code = NE#) 5.2 10\S\3/uL 2.0-8.0 LYMPH # (test code = LY#) 1.0 10\S\3/uL 1.2-4.0 L MONOCYTE # (test code = MO#) 0.7 10\S\3/uL 0.0-1.1 EOSINOPH # (test code = EO#) 0.1 10\S\3/uL 0.0-0.7 BASOPHIL # (test code = BA#) 0.0 10\S\3/uL 0.0-0.3 IG # (test code = IG#) 0.02 10\S\3/uL 0.00-0.06 NRBC # (test code = NRBC#) 0.00 10\S\3/uL 0.00-0.01 NEUTROPH % (test code = NE%) 74.7 % 35.0-73.0 H LYMPH % (test code = LY%) 14.2 % 20.0-55.0 L MONO % (test code = MO%) 9.3 % 2.5-10.0 EOSINOPH % (test code = EO%) 1.1 % 0.0-5.0 BASOPHIL % (test code = BA%) 0.4 % 0.0-2.0 IG % (test code = IG%) 0.3 % 0.0-0.8 NRBC% (test code = NRBC%) 0.0 % 0.0-0.2 MANDIFF (test code = MDIFF) NO NO RBC MORPH (test code = RBCMOR) NORMAL Arterial Blood [id number] 02:02:00 Test Item Value Reference Range Interpretation Comments pH (test code = PHRT) 7.344 7.350-7.450 L pCO2 (test code = 32.1 mmHg 35.0-45.0 L PCO2RT) pO2 (test code = 130.0 mmHg 80.0-110.0 H PO2RT) HCO3? (test code = 17.0 mmol/L 22.0-26.0 L HCO3) AMA (test code = AMA) -7.3 mmol/L -3.0-3.0 L tHb (test code = 10.5 g/dL 14.0-18.0 L THBRT) sO2 (test code = 98.2 % 92.0-100.0 SO2RT) FO2Hb (test code = 95.0 % 94.0-100.0 VF2NPQL) FCOHb (test code = 1.9 % 0.0-3.0 FCOHBRT) FMetHb (test code = 1.3 % 0.2-0.6 H FMETHBRT) ABGTEMP (test code = * Temp Corrected Values* ABGTEMP) ABGTEMP (test code = 37.0 ?C ABGTEMP.) pH (T) (test code = 7.344 7.350-7.450 L PHTEMP) pCO2 (T) (test code = 32.1 mmHg 35.0-45.0 L ALB1YFUF) pO2 (T) (test code = 130.0 mmHg 80.0-110.0 H XF0ZRFS) Device (test code = NASAL CANNULA DEVICE) FI02 (test code = 28.0 % FI02) Liter_flow (test code 2.00 = LF) VENPAR (test code = * Ventilator Parameters VENPAR) * SIMV (test code = SIMV) A/C (test code = A/C) CPAP (test code = CPAP) PEEP (test code = PEEP) PS (test code = PS) PIP (test code = PIP) I_Time (test code = ITIME) Vt (test code = VT) BIPAP INSP (test code = BIPAPINP) BIPAP EXP (test code = BIPAPEXP) Farhan test (test code Positive = ATEST) SAMPLE SITE (test Right Radial Artery code = SSITE) COMMENT (test code = CO)
[2020-07-26] MEDS ORDERED: NA CHLORIDE 0.9% 500 ML ONE ×3 (12:25→14:23)
[2020-07-26] MEDS ORDERED: IBUPROFEN 400 MG TAB ONE (12:25)
[2020-07-26 12:44] LABS: Absolute Lymphocytes (CBC) 0.7 K/uL (0.7-4.9); Basophils % 0.8 % (0-1.3); Hematocrit 37.9 % (39.6-49.0); Lymphocytes % 12.1 % (15.3-44.8); MPV 7.1 fL (7.6-11.3); RBC Red Blood Cell Count 4.81 M/uL (4.33-5.43)
[2020-07-26 12:48] LABS: ALT/SGPT 43 U/L (12-78); AST/SGOT 36 U/L (15-37); Albumin 3.1 g/dL (3.4-5.0); Alkaline Phosphatase 122 U/L (45-117); BUN Blood Urea Nitrogen 20 mg/dL (7-18); Bicarbonate 24 mmol/L (21-32); Bilirubin Direct < 0.1 mg/dL (0-0.2); Bilirubin Total 0.2 mg/dL (0.2-1.0); Glucose Level 148 mg/dL (74-106); Lipase 172 U/L (73-393); Potassium 3.8 mmol/L (3.5-5.1); Protein, Total 7.1 g/dL (6.4-8.2); Sodium Level 141 mmol/L (136-145)
--- NOTE | 2020-07-26 13:27 | RAD REPORT ---
EXAM DESCRIPTION: CT - Abdomen Pelvis Wo Contrast - 07/26/2020 12:55 pm CLINICAL HISTORY: diarrhea;Abd pain COMPARISON: CT ABD PELVIS W CONTRAST dated 11/30/2014; CT ABD PELVIS W CONTRAST dated 05/12/2009 TECHNIQUE: Axial [address] imaging of the abdomen and pelvis was performed without IV contrast. No IV contrast was given because of allergy, abnormal renal function, patient refusal or physician re quest. No oral contrast administered. All CT scans are performed using dose optimization technique as appropriate and may include automated exposure control or mA/KV adjustment according to patient size. FINDINGS: No acute pleural or parenchymal lung base finding. No pericardial effusion. Left band is in place. Lap band has slipped with 10-15% of the stomach herniated above the level of t he lap band. Liver shows borderline to mild fatty infiltration. There are no focal lesions on noncontrast imaging. Spleen and pancreas show no suspicious findings. Gallbladder and biliary tree are also without suspi cious finding. Gallstones can be occult on CT imaging. No hydronephrosis or suspicious renal mass. No obstructing or nonobstructing calculi. No significant adrenal finding. Isodense renal masses and pyelonephritis cannot be excluded in the absence of IV con trast. Urinary bladder is only partially filled. Along the left lateral pelvic side wall at the level of the hip joint there is a 5.7 x 3.6 oval low-density or fluid attenuation mass. This has developed since 2014. No associated fat or calcification. This abuts the external iliac vein. The external jessica ac artery appears to course along the periphery of the mass but not to be involved. Prostatectomy appears to been performed since the 2014 study. This could be a chronic postoperative s eroma. An aggressive pelvic mass is not suspected. No dilated bowel loops or bowel wall thickening. Patient has a small diverticulum along the duodenal C-loop. No free air, free fluid or inflammatory stranding. No bulky lymphadenopathy. Disc and bone de generative changes are present. No suspicious bony findings. IMPRESSION: No colitis or enteritis findings. No abnormality to explain diarrhea and fever symptoms. Patient has a lap band in place which has slipped. Approximately 10-15% of the stomach has extended t hrough the lap band into the lower chest. 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 Full assessment is limited is the absence of IV contrast.
[2020-07-26 13:33] LABS: Blood Morphology Comment NOT SEEN (NOT SEEN); Platelet Estimate ADEQ; Platelets, Giant FEW
[2020-07-26] MEDS ORDERED: DIPHENOX/ATROP SULF 1 TAB PO ONE (14:23)
--- NOTE | 2020-07-26 15:05 | EDPHYS ---
Physician Documentation [facility] Name: Derek Matias Age: 60 yrs Sex: Male : 1960 Arrival Date: 07/26/2020 Time: 10:58 Bed 6 Private MD: ED Physician Tay Christian HPI: 07/26 13:48 This 60 yrs old Other Male presents to ER via Ambulatory with complaints of Diarrhea, rn Fever, Dizziness. 13:48 The patient presents to the emergency department with diarrhea, abdominal pain. Onset: rn The symptoms/episode began/occurred 1 week(s) ago. Possible causes: unknown. The symptoms are aggravated by nothing. The symptoms are alleviated by nothing. Severity of symptoms: At their worst the symptoms were moderate in the emergency department the symptoms are unchanged. The patient has not experienced similar symptoms in the past. The patient has not recently seen a physician. Reports 1 week of abd pain, diarrhea, non-bloody, no trauma. No cough/congestion/loss of taste or smell. + decreased appetite. . Historical: - Allergies: 11:22 Demerol; ll1 - Home Meds: 11:45 lisinopril Oral [Active]; Metformin Oral [Active]; pantoprazole Oral [Active]; pt does tw2 not remember the others [Active]; - PMHx: 11:22 Diabetes - NIDDM; GERD; Hypertension; ll1 - PSHx: 11:22 Appendectomy; ll1 - Immunization history:: Flu vaccine is up to date. - Social history:: Smoking status: Patient reports the use of cigarette tobacco products, smokes one-half pack cigarettes per day. - Family history:: not pertinent. - Hospitalizations: : No recent hospitalization is reported. 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 Exam: 13:48 Constitutional: This is a well developed, well nourished patient who is awake, alert, rn and in no acute distress. Ambulatory to bathroom 3 times since arrival. Head/Face: Normocephalic, atraumatic. Cardiovascular: Regular rate and rhythm. No pulse deficits. Respiratory: No increased work of breathing, no retractions or nasal flaring. Abdomen/GI: soft, non-tender, no distension Skin: Warm, dry MS/ Extremity: Pulses equal, no cyanosis. Neurovascular intact. Full, normal range of motion. Equal circumference. Neuro: Awake and alert, GCS 15 Vital Signs: 11:20 BP 137 / 98; Pulse 87; Resp 18; Pulse Ox 99% ; Weight 127.01 kg; Height 5 ft. 7 in. ll1 (170.18 cm); Pain 7/10; 13:13 BP 95 / 63; Pulse 79; Resp 20; Pulse Ox 98% ; sv 13:18 Temp 98.6(TE); tw2 13:53 BP 91 / 70; Pulse 77; Resp 19; Pulse Ox 99% ; sv 15:26 BP 110 / 56; Pulse 82; Resp 17; Pulse Ox 99% on R/A; tw2 11:20 Body Mass Index 43.85 (127.01 kg, 170.18 cm) ll1 MDM: 11:18 Patient medically screened. rn 14:09 Differential diagnosis: Nonspecific abd pain, diverticulitis, viral gastroenteritis, rn gastroenteritis, Colitis, diverticulitis. Data reviewed: vital signs, nurses notes, lab test result(s), radiologic studies, CT scan. Counseling: I had a detailed discussion with the patient and/or guardian regarding: the historical points, exam findings, and any diagnostic results supporting the discharge/admit diagnosis, lab results, radiology results. Response to treatment: the patient's symptoms have mildly improved after treatment, and as a result, I will continue to observe the patient. ED course: Spoke with patient regarding neg ct abdomen, labs unremarkable, COVID pending. Feels a little better. Offered observation in hospital due to dehydration, extent of diarrhea, and last 2 BP in 90s. Patient does not want to be admitted, told him will give lomotil and fluids and reassess. . 07/26 12:10 Order name: Basic Metabolic Panel; Complete Time: 12:50 rn 07/26 12:10 Order name: CBC with Diff; Complete Time: 13:34 rn 07/26 12:10 Order name: Hepatic Function; Complete Time: 12:50 rn 07/26 12:10 Order name: Lipase; Complete Time: 12:50 rn 07/26 12:10 Order name: Flu; Complete Time: 13:34 rn 07/26 12:10 Order name: COVID-19 rn 07/26 12:51 Order name: Abdomen ; Complete Time: 13:34 EDMS 07/26 13:23 Order name: CREATININE WHOLE BLOOD; Complete Time: 13:34 EDMS 07/26 13:34 Order name: Manual Differential; Complete Time: 13:34 EDMS 07/26 12:10 Order name: IV Saline Lock; Complete Time: 12:26 rn 07/26 12:10 Order name: Labs collected and sent; Complete Time: 12:26 rn Administered Medications: 12:24 Drug: Motrin 800 mg Route: PO; tw2 13:30 Follow up: Response: No adverse reaction tw2 12:26 Drug: NS 0.9% 500 ml Route: IV; Rate: bolus; Site: right antecubital; tw2 13:40 Follow up: Response: No adverse reaction; IV Status: Completed infusion; IV Intake: tw2 500ml 13:40 Drug: NS 0.9% 500 ml Route: IV; Rate: bolus; Site: right antecubital; tw2 14:15 Follow up: Response: No adverse reaction; IV Status: Completed infusion; IV Intake: tw2 500ml 14:14 Drug: NS 0.9% 500 ml Route: IV; Rate: bolus; Site: right antecubital; tw2 15:26 Follow up: Response: No adverse reaction; IV Status: Completed infusion; IV Intake: tw2 500ml 14:14 Drug: LoMOTIL 2 tabs Route: PO; tw2 15:26 Follow up: Response: No adverse reaction tw2 Disposition: 07/26/20 15:04 Discharged to Home. Impression: Diarrhea, unspecified, Dehydration. - Condition is Stable. - Discharge Instructions: Food Choices to Help Relieve Diarrhea, Adult, Dehydration, Adult. - Prescriptions for Lomotil 2.5- 0.025 mg Oral Tablet - take 1 tablet by ORAL route every 6 hours As needed; 20 tablet. - Medication Reconciliation Form, Thank You Letter, Antibiotic Education, Prescription Opioid Use form. - Follow up: Shakeel White MD; When: As needed; Reason: Recheck today's complaints, Re-evaluation by your physician. - Problem is new. - Symptoms are unchanged. Signatures: Dispatcher [employer] [facility] Tay Christian MD MD rn Wise, Tara RN RN tw2 Jeni Bae RN RN ll1 Corrections: (The following items were deleted from the chart) 12:51 12:10 Abdomen Pelvis W Con+CT.RAD.BRZ ordered. [facility] 15:27 15:04 07/26/2020 15:04 Discharged to Home. Impression: Diarrhea, unspecified; tw2 Dehydration. Condition is Stable. Forms are Medication Reconciliation Form, Thank You Letter, Antibiotic Education, Prescription Opioid Use. Follow up: Shakeel White; When: As needed; Reason: Recheck today's complaints, Re-evaluation by your physician. Problem is new. Symptoms are unchanged. rn
--- NOTE | 2020-07-26 15:05 | ER ---
Nurse's Notes [facility] Name: Derek Matias Age: 60 yrs Sex: Male : 1960 Arrival Date: 07/26/2020 Time: 10:58 Bed 6 Private MD: Diagnosis: Diarrhea, unspecified;Dehydration Presentation: 07/26 11:20 Chief complaint: Patient states: Diarrhea, low grade fever, dizziness for 1 week. Tried ll1 OTC antidiarrhea and Pepto Bismol, no relief. Coronavirus screen: Client denies travel out of the [place] in the last 14 days. diarrhea, fatigue, fever, Client presents with at least one sign or symptom that may indicate coronavirus-19. Standard/surgical mask placed on the client. Ebola Screen: Patient denies travel to an Ebola-affected area in the 21 days before illness onset. Initial Sepsis Screen: Does the patient meet any 2 criteria? No. Patient's initial sepsis screen is negative. Does the patient have a suspected source of infection? Yes: Acute abdominal pain. Risk Assessment: Do you want to hurt yourself or someone else? Patient reports no desire to harm self or others. Onset of symptoms was July 21, 2020. 11:20 Method Of Arrival: Ambulatory ll1 11:20 Acuity: CARLOS 3 ll1 Historical: - Allergies: 11:22 Demerol; ll1 - Home Meds: 11:45 lisinopril Oral [Active]; Metformin Oral [Active]; pantoprazole Oral [Active]; pt does tw2 not remember the others [Active]; - PMHx: 11:22 Diabetes - NIDDM; GERD; Hypertension; ll1 - PSHx: 11:22 Appendectomy; ll1 - Immunization history:: Flu vaccine is up to date. - Social history:: Smoking status: Patient reports the use of cigarette tobacco products, smokes one-half pack cigarettes per day. - Family history:: not pertinent. - Hospitalizations: : No recent hospitalization is reported. Screenin:33 Abuse screen: Denies threats or abuse. Nutritional screening: No deficits noted. tw2 Tuberculosis screening: No symptoms or risk factors identified. Fall Risk None identified. Assessment: 11:40 General: Appears in no apparent distress. obese, well groomed, Behavior is calm, tw2 cooperative, appropriate for age. Pain: Denies pain. Neuro: Reports dizziness. Cardiovascular: Heart tones S1 S2 Patient's skin is warm and dry. Respiratory: Airway is patent Respiratory effort is even, unlabored, Respiratory pattern is regular, symmetrical, Breath sounds are clear bilaterally. GI: Abdomen is round non-distended, obese, Bowel sounds present X 4 quads. Reports diarrhea. : No signs and/or symptoms were reported regarding the genitourinary system. EENT: No signs and/or symptoms were reported regarding the EENT system. Derm: No signs and/or symptoms reported regarding the dermatologic system. Musculoskeletal: Range of motion: intact in all extremities. 12:05 Reassessment: provider at bedside at this time. tw2 13:00 Reassessment: Patient appears in no apparent distress at this time. No changes from tw2 previously documented assessment. Patient and/or family updated on plan of care and expected duration. Pain level reassessed. Patient is alert, oriented x 3, equal unlabored respirations, skin warm/dry/pink. 14:04 Reassessment: Patient appears in no apparent distress at this time. No changes from tw2 previously documented assessment. Patient and/or family updated on plan of care and expected duration. Pain level reassessed. Patient is alert, oriented x 3, equal unlabored respirations, skin warm/dry/pink. provider at bedside at this this discussing results. 15:26 Reassessment: Patient appears in no apparent distress at this time. No changes from tw2 previously documented assessment. Patient and/or family updated on plan of care and expected duration. Pain level reassessed. Patient is alert, oriented x 3, equal unlabored respirations, skin warm/dry/pink. Vital Signs: 11:20 BP 137 / 98; Pulse 87; Resp 18; Pulse Ox 99% ; Weight 127.01 kg; Height 5 ft. 7 in. ll1 (170.18 cm); Pain 7/10; 13:13 BP 95 / 63; Pulse 79; Resp 20; Pulse Ox 98% ; sv 13:18 Temp 98.6(TE); tw2 13:53 BP 91 / 70; Pulse 77; Resp 19; Pulse Ox 99% ; sv 15:26 BP 110 / 56; Pulse 82; Resp 17; Pulse Ox 99% on R/A; tw2 11:20 Body Mass Index 43.85 (127.01 kg, 170.18 cm) ll1 ED Course: 10:58 Patient arrived in ED. mr 11:18 Tay Christian MD is Attending Physician. rn 11:19 Arm band placed on Patient placed in an exam room, on a stretcher. sv 11:21 Triage completed. ll1 11:36 Yasmeen Wallace, NIR is Primary Nurse. tw2 11:37 Placed in gown. Bed in low position. manager decision support on. Pulse ox on. NIBP on. tw2 12:24 Initial lab(s) drawn, by me, sent to lab. Inserted saline lock: 20 gauge in right tw2 antecubital area, using aseptic technique. Blood collected. 12:53 Abdomen In Process Unspecified. EDMS 15:04 Shakeel White MD is Referral Physician. rn 15:26 No provider procedures requiring assistance completed. IV discontinued, intact, tw2 bleeding controlled, No redness/swelling at site. Pressure dressing applied. Administered Medications: 12:24 Drug: Motrin 800 mg Route: PO; tw2 13:30 Follow up: Response: No adverse reaction tw2 12:26 Drug: NS 0.9% 500 ml Route: IV; Rate: bolus; Site: right antecubital; tw2 13:40 Follow up: Response: No adverse reaction; IV Status: Completed infusion; IV Intake: tw2 500ml 13:40 Drug: NS 0.9% 500 ml Route: IV; Rate: bolus; Site: right antecubital; tw2 14:15 Follow up: Response: No adverse reaction; IV Status: Completed infusion; IV Intake: tw2 500ml 14:14 Drug: NS 0.9% 500 ml Route: IV; Rate: bolus; Site: right antecubital; tw2 15:26 Follow up: Response: No adverse reaction; IV Status: Completed infusion; IV Intake: tw2 500ml 14:14 Drug: LoMOTIL 2 tabs Route: PO; tw2 15:26 Follow up: Response: No adverse reaction tw2 Intake: 13:40 IV: 500ml; Total: 500ml. tw2 14:15 IV: 500ml; Total: 1000ml. tw2 15:26 IV: 500ml; Total: 1500ml. tw2 Outcome: 15:04 Discharge ordered by . rn 15:26 Discharged to home ambulatory, with significant other. tw2 15:26 Condition: stable 15:26 Discharge instructions given to patient, significant other, Instructed on discharge instructions, follow up and referral plans. medication usage, Demonstrated understanding of instructions, follow-up care, medications, Prescriptions given X 1. 15:27 Patient left the ED. tw2 Addendum: 07/28/2020 18:06 Addendum: COVID-19 Result: Negative result given to RN to notify pt. Attempted to i w contact pt regarding negative COVID-19 swab results. Left voice mail. 18:09 Addendum: COVID-19 Result: Negative result given to RN to notify pt. Notified pt of i w negative COVID 19 swab results. Pt advised that even with a negative test result they should remain in isolation until symptom free for 3 days without medication. Pt also advised to return to the ED for worsening symptoms. Signatures: Dispatcher [employer] Tierra Beckman RN RN sv Rivera, Mary mr Williams, Irene RN Tay Mcfarlane MD MD rn Wise, Tara, RN RN 2 Jeni Bae RN RN 1
[2020-07-26 15:42] VITALS: TEMP 98.6
[2020-07-26 15:44] VITALS: O2SAT 99
[2020-07-26 15:45] VITALS: BP 110/56
== END 2020-07-26 15:27 | disposition home or self-care (01) ==
LOC: ER 10:53
DX: E86.0 Dehydration (principal); Z20.828 Contact with and (suspected) exposure to other viral communicable diseases; I10 Essential (primary) hypertension; E11.9 Type 2 diabetes mellitus without complications; Z88.5 Allergy status to narcotic agent
CPT/HCPCS: 96361; 85025; 80048; 36415; 82565; 80076; 83690; 87804 ×2; 74176; 96360; 99284; U0002; J7040 ×3